=== PATIENT | male | born 1940 | race Caucasian/White ===

== ENCOUNTER 2023-11-02 07:19 | Day surgery (SDC) | payer OTHER, MEDICARE, SELFPAY ==
[2023-11-02 08:45] VITALS: BP 143/61; PULSE 48; RESP 16; TEMP 36.1; O2SAT 100
[2023-11-02 09:28] VITALS: BMI 23.6
--- NOTE | 2023-11-02 09:28 | W.ANESPRE ---
General Info Date of Service Date Performed: 11/02/23 Height: 5 ft 5 in Weight: 64.41 kg Body Mass Index (BMI): 23.6 Surgical Procedure: Operation Date: 11/02/23 10:40 Proposed Procedure Side Surgeon p Cataract Extraction with IOL Implant Left Nicanor Shi MD Meds Allergies and Home Medications Allergies Allergy/AdvReac Type Severity Reaction Status Date / Time aspirin Allergy Other (See Verified 11/02/23 09:05 Comment) iodine Allergy Other (See Verified 11/02/23 09:05 Comment) Home Medication Medication Instructions Recorded ascorbic acid (vitamin C) 500 mg 500 mg PO DAILY 11/01/23 tablet,extended release (C Complex) cholecalciferol (vitamin D3) 50 50 mcg PO DAILY 11/01/23 mcg (2,000 unit) tablet (Vitamin D3) famotidine 10 mg tablet (Acid 10 mg PO DAILY 11/01/23 Controller) mecobalamin (vitamin B12) 1,000 1,000 mcg PO DAILY 11/01/23 mcg chewable tablet triamcinolone acetonide 0.1 % 1 applic topical DIRECTED 11/01/23 topical cream Current Visit Medications: Current Medications Generic Name Dose Route Start Last Admin Trade Name Freq PRN Reason Stop Dose Admin Acetaminophen 1,000 mg 11/02/23 06:00 Acetaminophen 500 Mg Tab PO 12/02/23 05:59 Q4H PRN PRN Balanced Salt Solution 500 ml 11/02/23 06:00 Balanced Salt Soln.-Plus 500 Ml Bag OP 12/02/23 05:59 DIRECTED CLAUDE Miscellaneous Medication 0 ml 11/02/23 06:00 Prednisolone 1%, Moxifloxacin 0.5%, Bromfenac 0.09% 5ml Btl OS 12/02/23 05:59 DIRECTED CLAUDE Miscellaneous Medication 0 ml 11/02/23 06:00 11/02/23 09:24 Tropicam./Phenyleph. (1/2.5%) 10 Ml Btl OS 12/02/23 05:59 1 drp DIRECTED CLAUDE Administration Tetracaine HCl 0 ml 11/02/23 06:00 Tetracaine 0.5% 4 Ml Btl OS 12/02/23 05:59 DIRECTED CLAUDE PFSH Active Problems Active Problems: Problem Status Onset Code Posterior subcapsular age-related cataract of left eye H25.042 Nuclear age-related cataract, left eye H25.12 Medical History Medical History Right upper quadrant pain Non-toxic uninodular goiter Left shoulder pain Disorder of skin and subcutaneous tissue Dermatophytosis Chest pain Allergic rhinitis Medical History Comments:: Difficult intubation Hx Surgical History Surgical History Hx of appendectomy Hx of inguinal hernia repair H/O cataract extraction H/O hernia repair Hx of endoscopy Tobacco Smoking/Tobacco Use Status: Former Tobacco Use Alcohol Alcohol Intake: never Substance Use Substance use: Never Substance use type: does not use Vital Signs and Lab Results Vital Signs Most Recent Vital Signs in EMR: Most Recent Vital Signs Temp Pulse Resp BP Pulse Ox 36.1 C L 48 L 16 143/61 H 100 11/02/23 08:45 11/02/23 08:45 11/02/23 08:45 11/02/23 08:45 11/02/23 08:45 Lab Results Blood Type / Crossmatch: No Data to Display Complete Blood Count: No Data to Display Complete Metabolic Panel: No Data to Display Liver Function Panel: No Data to Display Coagulation Panel: No Data to Display Cardiac Panel: No Data to Display Arterial Blood Gas: No Data to Display Venous Blood Gas: No Data to Display Pancreas Panel: No Data to Display Thyroid Panel: No Data to Display Infectious Disease: No Data to Display Blood Cultures: No Data to Display Toxicology Panel: No Data to Display Anesthesia Assessment and Plan Anesthesia History Personal History: Other (Difficult Airway per patient ) Family History: No Family History of Anesthesia Complications Exercise Tolerance Exercise Tolerance: Metabolic Equivalents>4 Pertinent Negatives Pertinent Negatives: No Symptoms of GERD and No Major Pulmonary Symptoms or Complaints Cardiac & Pulmonary Exam Cardiac Exam: Normal S1/S2 Heart Sounds Pulmonary Exam: Clear Bilateral Breath Sounds Implantable Cardiac Device Does patient have a Pacemaker or an ICD?: No Airway Exam Known Difficult Airway: Yes Mallampati Class: 3 Mouth Opening: Narrow (< 3cm) Thyromental Distance: Greater than 3 cm Neck Range of Motion: Limited ROM (Slight limitation) Neck Circumference: Normal Teeth Condition: Generalized Poor Dentition (Narrow arched pallet, appears crowded teeth) ASA Classification ASA Score: ASA 3 Emergency Case?: No NPO Status NPO Status: NPO Clears >2 hours, Solids >8 hours Anesthesia Plan Resuscitation Status: Full Code Anesthesia Technique: MAC Anesthesia Airway Planned: Natural Airway Monitors Used: Standard Monitors
[2023-11-02] MEDS: Povidone-Iodine Ophth 30 ML BTL (10:01)
[2023-11-02] MEDS: Tetracaine 0.5% 4 ML BTL OS (10:01)
[2023-11-02] MEDS: Duovisc Viscoelastic System EACH 1 EACH (10:08)
[2023-11-02] MEDS: Balanced Salt Soln.-PLUS 500 ML BAG OP (10:08)
[2023-11-02] MEDS: Lidocaine 1% Pres-Free 5 ML VIAL (10:09)
[2023-11-02] MEDS: Trypan Blue 0.06% 0.5 ML SYR (10:14)
[2023-11-02 10:32] VITALS: BP 148/62; PULSE 55; RESP 16; TEMP 36.5; O2SAT 100
--- NOTE | 2023-11-02 10:32 | W.PM.DSUDISC ---
Date of service: 11/02/23 Time of Service: 10:33 Discharge Plan Disposition Patient Disposition: Home Discharge Details Attending Provider: Nicanor Shi Primary Care Provider: Kvng Sigala Billings Med and New Rx's Prescriptions: No Action famotidine [Acid Controller] 10 mg tablet 10 mg PO DAILY triamcinolone acetonide 0.1 % cream 1 applic topical DIRECTED mecobalamin (vitamin B12) 1,000 mcg tablet,chewable 1,000 mcg PO DAILY ascorbic acid (vitamin C) [C Complex] 500 mg tablet extended release 500 mg PO DAILY cholecalciferol (vitamin D3) [Vitamin D3] 50 mcg (2,000 unit) tablet 50 mcg PO DAILY Discharge Instructions Stand Alone Forms: [facility] Post-Op CataractKirsty (DSU) Discharge Orders Discharge Orders: Discharge Order (Routine); Ordered 11/02/23 Ordered By: Nicanor Shi DS: Diagnosis Discharge Diagnosis (1) Posterior subcapsular age-related cataract of left eye: Status: Resolved (2) Nuclear age-related cataract, left eye: Status: Resolved
--- NOTE | 2023-11-02 10:33 | ROE_ITS ---
Date of service: 11/02/23 Time of Service: 10:33 Operative Note Operative Note DATE OF PROCEDURE: 11/02/23 PRE-OP DIAGNOSIS: Nuclear/posterior subcapsular cataract, left eye POST-OP DIAGNOSIS: same PROCEDURE: Cataract extraction using phacoemulsification with intraocular lens implant, left eye SURGEON: Nicanor Shi ANESTHESIA TYPE: Local By Surgeon and MAC Refer to Anesthesia Record PATHOLOGY: none sent COMPLICATIONS: None Patient was transported to: same day Patient's condition: stable Implants: Alex Clareon [id number] Indications: Progressive decreased vision due to cataract, left eye Procedure Description: CATARACT SURGERY OPERATIVE REPORT PREOPERATIVE DIAGNOSIS: Nuclear/posterior subcapsular cataract, left eye POSTOPERATIVE DIAGNOSIS: Same OPERATION: Cataract extraction using phacoemulsification with posterior chamber intraocular lens implant, left eye. IOL: IOL Pre Billing Specialist/Model: Alex Clareon [id number] IOL Power: + 16.0 diopters IOL Serial Number: [id number] Optic Diameter: 6.0mm Haptic/Overall Diameter: 13.0mm PHACO INFO: [employer]urion Vision System with OZil and Active Fluidics Cumulative Dispersed Energy (CDE): 18.75 seconds SURGEON: Nicanor Shi MD, EDGARDO ANESTHESIA: Monitored Anesthesia Care (MAC), with local sub-tenon's anesthetic infiltration COMPLICATIONS: None SPECIMENS: None INDICATIONS FOR PROCEDURE: The patient is an 83-year-old male with history of diminished visual acuity in his left eye. He has noted to have a significant nuclear/posterior subcapsular cataract. Previously underwent cataract surgery about [address] Borja. He has done well postoperatively and his right eye, but is now significantly symptomatic from cataract in his left eye that he desires cataract surgery and attempt to improve and maximize his vision. See office notes for detailed information. PROCEDURE: The correct surgical eye was identified and marked as the left eye and the pupil was dilated in the preoperative area using mydriatics and cycloplegics. The dilated pupil size was 7.0 mm. The patient elected to proceed without oral sedation. The patient was brought to the operating room where cardiopulmonary monitoring was instituted and surgical time-out was performed, confirming the correct operative eye and IOL power. Topical anesthesia was administered and ophthalmic povidone-iodine 5% was instilled into the conjunctival fornices. The francia-ocular area was prepped with Betadine 10% solution and draped in the usual sterile fashion for intraocular surgery, including an aperture drape. A Tegaderm transparent film dressing was cut in half and used to cover the lashes and lid margins. Care was taken to sequester the lashes and lid margins under the Tegaderm dressing. A lid speculum was placed between the lids of the operative eye and the Alex LuxOR Revalia operating microscope was maneuvered into position. Bi scissors were then used to make a conjunctival buttonhole approximately 6mm posterior to the limbus in the inferonasal quadrant. Blunt dissection was carried out to expose bare sclera, and a blunt-tipped sub-tenon?s anesthesia cannula was introduced and passed posteriorly along the globe where non- preserved plain lidocaine was injected into posterior sub-Tenon?s space. A sideport knife was used to make a paracentesis port. VisionBlue was injected into the anterior chamber and allowed to sit for 30 seconds. Intraocular phenylephrine/lidocaine was injected into the anterior chamber. The anterior chamber was then filled with viscoelastic. A keratome knife was used construct a two-plane clear corneal tunnel extending 2.0mm into clear cornea. A flap was raised on the anterior capsule and capsulorhexis forceps were used to complete a continuous curvilinear capsulorhexis of 5.0 mm. Balanced salt solution was then used to perform cortical cleaving hydrodissection and nuclear hydrodelineation until the lens could be freely rotated within the capsular bag. The lens nucleus was then disassembled and removed within the capsular bag and iris plane using phacoemulsification. Residual cortical material was removed using the irrigation/aspiration handpiece. The posterior capsule was carefully polished to remove as much residual lens epithelial cells as safely possible. The capsular bag was then inflated and the anterior chamber deepened with viscoelastic. The lens implant described above was inserted into the capsular bag using the Alex Autonome Injector. A Kuglen hook was used to dial the IOL into position. Residual viscoelastic was then removed first from posterior to the IOL, then from the anterior chamber using the I/A handpiece. The lens implant was noted to center nicely within the capsular bag. The incisions were stromally hydrated, and the anterior chamber was reformed using BSS. Then 0.5cc of moxifloxacin 1.0mg/ml were injected into the capsular bag and anterior chamber. The incisions were checked with a Weck spear and found to be secure. Several drops of ophthalmic povidone-iodine 5% were then applied to the eye followed by two drops of combination steroid/NSAID/antibiotic solution. The drapes were removed and a clear plastic protective eye shield was placed over the eye. The patient was then returned to Same Day Surgery in stable condition.
--- NOTE | 2023-11-02 10:44 | W.ANESPOSTOP ---
Postoperative Evaluation Date, Time and Location Date Performed: 11/02/23 Time Performed: 10:35 Patient Location: Day Surgery Unit Vital Signs Most Recent Imported Vital Signs: Most Recent Vital Signs Temp Pulse Resp BP Pulse Ox 36.5 C 55 L 16 148/62 H 100 11/02/23 10:32 11/02/23 10:32 11/02/23 10:32 11/02/23 10:32 11/02/23 10:32 Pain Score Most Recent Pain Score: Most Recent Pain Score Pain Level 0 11/02/23 10:32 Assessment Mental Status: Awake (Alert & Oriented to Patient Baseline) Airway and Respiratory Function: Patent airway with normal (patient baseline) respiratory exam Cardiovascular Function: Hemodynamically Stable Hydration Status: Adequately Hydrated Nausea & Vomiting: No Nausea or Vomiting Pain: Pt. Denies Any Pain Peripheral Nerve Block: Other (Local by Dr. Shi)
== END 2023-11-02 11:02 | disposition home or self-care (01) ==
LOC: SUR 07:22
PROVIDERS: PCP Family Medicine; Visit Provider Ophthalmology
PROC: (CPT 66984; principal; 2023-11-02 10:30)
DX: H25.042 Posterior subcapsular polar age-related cataract, left eye (principal); H25.12 Age-related nuclear cataract, left eye; Z98.41 Cataract extraction status, right eye
CPT/HCPCS: 66984; 00123; V2632; J2003